=== PATIENT | male | born 1950 | race Caucasian/White ===

== ENCOUNTER 2017-01-07 17:36 | Inpatient (IN) | payer OTHER ==
[~2017-01-07] VITALS: Ht 180.3 cm; Wt 70.8 kg
--- NOTE | ~2017-01-07 | 2DMMODE ---
[facility] [address] [place] [address] 2 D/M-MODE ECHOCARDIOGRAM Name: WILEY CRUZ Room #: 312-P [facility] IN .#: [id number] Admission: 01/07/17 Attend Phys: Martinez Loza, Discharge: Date of : 48 Date of Service: 01/08/17 1248 Report #: [id number] THIS REPORT FOR: //name// APPROVED REPORT Study performed: 01/08/2017 11:21:44 EXAM: Comprehensive 2D, Doppler, and color-flow Echocardiogram Patient Location: In-Patient Room #: 312 Status: routine BSA: 1.92 BP: 97/51 mmHg Other Information Study Quality: Good Indications Dizziness and Vertigo Bradycardia 2D Dimensions RVDd: 40.57 mm LVEF(%): 71.18 (>50%) IVSd: 8.74 (7-11mm) LVOT Diam: 21.53 (18-24mm) LVDd: 39.05 mm PWd: 10.46 (7-11mm) LVDs: 23.46 (25-40mm) Aortic Root: 30.32 mm IVC: 2.20 mm Bowles's LVEF: 71.18 % Volumes Left Atrial Volume (Systole) Single Plane 4CH: 48.04 mL Single Plane 2CH: 58.50 mL LA ESV Index: 31.00 mL/m2 Aortic Valve AoV Peak Jordy.: 1.20 m/s AO Peak Gr.: 6.44 mmHg LVOT Max P.55 mmHg LVOT Max V: 0.94 m/s MARY Vmax: 2.86 cm2 Mitral Valve E/A Ratio: 2.1 MV Decel. Time: 270.69 ms [facility] [address] [place] [address] 2 D/M-MODE ECHOCARDIOGRAM Name: NANCYWILEY Deanna Room #: 312-P [facility] IN .R.#: [id number] Admission: 01/07/17 Attend Phys: Martinez Loza, Discharge: Date of : 48 Date of Service: 01/08/17 1248 Report #: [id number] MV E Max Jordy.: 1.00 m/s MV A Jordy.: 0.48 m/s MV PHT: 78.50 ms IVRT: 101.50 ms Pulmonary Valve PV Peak Jordy.: 1.15 m/s PV Peak Gr.: 5.25 mmHg Pulmonary Vein P Vein S: 0.43 m/s P Vein A: 0.33 m/s P Vein D: 0.44 m/s P Vein A Dur.: 106.1 msec P Vein S/D Ratio: 0.98 Tricuspid Valve TR Peak Jordy.: 2.76 m/s RAP Estimate: 10.00 mmHg TR Peak Gr.: 30.57 mmHg PA Pressure: 41.00 mmHg Left Ventricle The left ventricle is normal size. There is normal left ventricular wall thickness. The left ventricular systolic function is normal. The left ventricular ejection fraction is within the normal range. LVEF is 60-65%. The left ventricular diastolic function is normal. Right Ventricle The right ventricle is normal size. The right ventricular systolic function is normal. Atria The left atrium size is normal. Right atrium is at the upper limits of normal. Aortic Valve The aortic valve is normal in structure. No aortic regurgitation is present. There is no aortic valvular stenosis. Mitral Valve The mitral valve is normal in structure. Trace mitral regurgitation. No evidence of mitral valve stenosis. Tricuspid Valve The tricuspid valve is normal in structure. There is trace tricuspid regurgitation. The right atrial pressure is estimated at 10 mmHg. There is mild-moderate pulmonary hypertension with an estimated PAP of 41 mmHg. [facility] [place] [address] 2 D/M-MODE ECHOCARDIOGRAM Name: WILEY CRUZ Room #: 312-P [facility] IN .R.#: [id number] Admission: 01/07/17 Attend Phys: Martinez Loza, Discharge: Date of : 48 Date of Service: 01/08/17 1248 Report #: [id number] Pulmonic Valve The pulmonary valve is normal in structure. Trace pulmonic regurgitation. Great Vessels The aortic root is normal in size. IVC is dilated and collapses >50% with inspiration. Pericardium There is no pericardial effusion. <Conclusion> The left ventricle is normal size. LVEF is 60-65%. The right ventricle is normal size. The aortic valve is normal in structure. The mitral valve is normal in structure. Trace mitral regurgitation. The tricuspid valve is normal in structure. There is trace tricuspid regurgitation. The right atrial pressure is estimated at 10 mmHg. There is mild-moderate pulmonary hypertension with an estimated PAP of 41 mmHg. The pulmonary valve is normal in structure. Trace pulmonic regurgitation. <ELECTRONICALLY SIGNED> By: Andres Spain MD 01/08/17 1248 1248 1248 Andres Spain MD /INF
--- NOTE | ~2017-01-07 | EKG ---
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
--- NOTE | ~2017-01-07 | D ---
[facility] [place] [address] DISCHARGE SUMMARY Name: WILEY CRUZ Room #: 312-P [facility] IN M.R.#: [id number] Admission: 01/07/17 Attend Phys: Hiral Mclain MD Discharge: 01/10/17 Date of : 48 Report #: [id number] THIS REPORT FOR: //name// CC: BRADLEY physician/PCP Hiral Mclain DATE OF SERVICE: 01/10/2017 HISTORY OF PRESENT ILLNESS: The patient is a 66-year-old man who came to the hospital with dizziness. Please refer to the admission H and P for details. 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 HOSPITALIZATION COURSE: The patient was hospitalized. He was started on IV fluids. Because the patient was very dizzy, he had further evaluation. He had MRI of the brain, as well as CT scan. Both came negative. The patient was seen and evaluated by neurologist. No neurological abnormalities were detected. On admission, the patient was also found to have bradycardia. His heart rate was in mid 40s. Later during the hospitalization, the patient's heart rate has been in between 50 and 65 most of the time. The patient was seen and evaluated by manager terminal. Most likely, the patient has sinus bradycardia at baseline, due to him being athletic, and very active physically. Cardiology has recommended 2 weeks of the Holter monitoring, which will be scheduled as an outpatient. Cardiac echo was unremarkable, with normal ejection fraction. After IV fluids, the patient felt much better. Today, he is completely asymptomatic. He has no dizziness, no headaches, chest pain or other symptoms. His physical examination is also unremarkable, as documented in the patient's chart. DISCHARGE DIAGNOSES: 1. Dizziness, likely due to dehydration, resolved. Negative neurologic evaluation, including MRI of brain as detailed above. 2. Bradycardia, mild, likely physiologic. Sinus rhythm on EKG, unremarkable. Cardiac echo. For further evaluation, manager terminal recommended outpatient Holter, which will be scheduled. 3. Diet controlled diabetes mellitus type 2, with reported hemoglobin of 6.1%. DISCHARGE MEDICATIONS: None. FOLLOWUP PLAN: 1. Follow up with the primary care physician in 2-[address] [address] DISCHARGE SUMMARY Name: WILEY CRUZ Room #: 312-P [facility] IN M.R.#: [id number] Admission: 01/07/17 Attend Phys: Hiral Mclain MD Discharge: 01/10/17 Date of : 48 Report #: [id number] 2. Follow up with manager terminal and setup outpatient Holter monitoring as advised. <ELECTRONICALLY SIGNED> By: Hiral Mclain MD 01/10/17 1534 1230 1254 Hiral Mclain MD /nt
--- NOTE | ~2017-01-07 | EKG ---
[address] [address] ELECTROCARDIOGRAM REPORT Name: WILEY CRUZ Room #: 312-[facility] IN M.R.#: [id number] Admission: 01/07/17 Attend Phys: Hiral Mclain MD Discharge: 01/10/17 Date of : 48 Report #: [id number] THIS REPORT FOR: //name// 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
--- NOTE | ~2017-01-07 | H ---
[facility] [place] [address] HISTORY AND PHYSICAL Name: WILEY CRUZ Room #: 312-P ADM IN M.R.#: [id number] Admission: 01/07/17 Attend Phys: Martinez Loza DO Discharge: Date of : 48 Report #: [id number] THIS REPORT FOR: //name// CC: FAM physician/PCP Martinez Loza DATE OF SERVICE: 01/07/2017 ATTENDING PHYSICIAN: Martinez Loza DO. PRIMARY CARE PHYSICIAN: Anthony Hussein MD. CHIEF COMPLAINT: Dizziness. HISTORY OF PRESENT ILLNESS: The patient is a 66-year-old male who says this morning after waking up, he noticed that when he would walk, he was drifting to the right and he felt very off balance. This continued to occur intermittently throughout the day always when he was ambulating. He denied any vertigo-like dizziness or room spinning. He denies any near syncope. He said he just felt like he could not stay upright and had to hold on to things when he was walking. He has never had this type of feeling before. He has previously been admitted after a fainting spell in 2011 and was noted to have orthostatic hypotension at that time. He said his blood sugars were very elevated at that time and his symptoms eventually improved. He was never on any medication for it. He was supposed to do a Holter monitor at one point, but he never did. He denies any history of strokes. He denies any associated numbness, tingling or weakness in any extremities. He denies any recent illness, head or chest congestion or cough or fevers or chills. He denies any associated chest pain or palpitations. He denies any recent head injury. He tried taking some aspirin at home, but his symptoms stayed the same. Therefore, he came into the ER to be evaluated. He has never had any seizures. Since arrival, he has been resting comfortably. The patient did feel very nauseated earlier in the day when he was moving because of the dizziness. He also noted at home that he had a slight bilateral hand tremor. He did receive some fluids in the ER and since his hand tremoring has improved, he denies any further nausea. PAST MEDICAL HISTORY: Diabetes, which is currently diet controlled. He reports his recent hemoglobin A1c was 6.1. PAST SURGICAL HISTORY: Hernia repair. ALLERGIES: [place] [address] HISTORY AND PHYSICAL Name: WILEY CRUZ Room #: 312-P [facility] IN .R.#: [id number] Admission: 01/07/17 Attend Phys: Martinez Loza DO Discharge: Date of : 48 Report #: [id number] HOME MEDICATIONS: None known home medications. SOCIAL HISTORY: The patient denies any tobacco use. He has not had anything to drink since 2011. He was never a heavy drinker in the past, denies any drug use. He lives alone. He is a . He has no children. He is currently retired after working for [employer]. He does ride his bike and lifts weights regularly. FAMILY HISTORY: His mother of uterine cancer. His father of prostate cancer. Both his brother and sister are diabetics. REVIEW OF SYSTEMS: Twelve point review of systems was reviewed with the patient, otherwise negative unless stated in the HPI. PHYSICAL EXAMINATION: GENERAL: The patient is an alert male in no acute distress. VITAL SIGNS: Temperature is 36.8, heart rate 67, respirations 16, blood pressure is 131/85, oxygen 98% on room air. HEENT: PERRLA. No nystagmus. Oral mucosa is pink and moist. NECK: Supple, no JVD noted. No carotid bruit auscultated. CARDIOVASCULAR: Normal S1, S2. No murmurs, rubs or gallops. RESPIRATORY: Breath sounds are clear bilaterally. No wheezing or rhonchi. Breathing is nonlabored. ABDOMEN: Soft, nontender, nondistended with positive bowel sounds. VASCULAR: No edema noted. Pedal pulses are 2+. NEUROLOGIC: The patient is alert and oriented x 3. Speech is clear. No facial asymmetry. EOMs are intact bilaterally. Muscle strength is 5/5 in all 4 extremities. No tremoring noted. SKIN: Intact. No rashes or lesions. LABORATORY DATA AND DIAGNOSTICS: WBC is 4.5, hemoglobin 14.0 and platelets 172. Sodium 140, potassium 3.6, BUN 28, creatinine 0.9, glucose 147. CT of the head showed no acute intracranial process. ASSESSMENT AND PLAN: 1. Unsteady gait. The patient will be further evaluated for cerebellar stroke with an MRI and MRA of the brain in the morning. If there is indication for stroke, we will consult Neurology. We will also check carotid Dopplers and orthostatics and have PT evaluate. Continue aspirin daily. Continue meclizine p.r.n. for dizziness. 2. Diabetes. This is diet controlled. He reports recent hemoglobin A1c of 6.1. We will add sliding scale insulin and Accu-Cheks. 3. Bradycardia. Since the patient has been sleeping, his heart rate is running in the 40s, but he is asymptomatic with this. Continue to monitor on telemetry. He is not on any beta prashant therapy. 4. Deep venous thrombosis prophylaxis, place sequential compression devices. [address] [place] [address] HISTORY AND PHYSICAL Name: WILEY CRUZ Room #: 312-P ADM IN M.R.#: [id number] Admission: 01/07/17 Attend Phys: Martinez Loza DO Discharge: Date of : 48 Report #: [id number] 5. We will continue to follow the patient closely throughout the hospitalization and make changes based on clinical status. <ELECTRONICALLY SIGNED> By: TERESA Peace 01/09/17 0743 0756 0837 TERESA Peace /nt
[~2017-01-07 17:36] MED LIST: GLUCOPHAGE500 MG PO
[2017-01-07 17:38] VITALS: BP 131/85
[2017-01-07 18:43] LABS: BASOPHILS 0.6 % (0.0-2.0); EOSINOPHILS 2.5 % (0.0-3.0); HEMATOCRIT 40.7 % (42.0-52.0); LYMPHOCYTES 23.3 % (24.0-44.0); MANUAL DIFF NO; MCH 30.1 pg (26.0-34.0); MCHC 34.4 g/dL (28.0-37.0); MCV 87.4 fL (80.0-100.0); MONOCYTES 6.8 % (1.0-8.0); PLATELET COUNT 172 thou/uL (150-400); POLYS 66.8 % (36.0-66.0); RBC 4.66 mil/uL (4.50-6.00); WBC 4.5 thou/uL (4.0-11.0)
[2017-01-07 19:01] LABS: CALCIUM 8.9 mg/dL (8.5-10.1); CREATININE 0.9 mg/dL (0.7-1.3); POTASSIUM 3.6 mmol/L (3.5-5.1)
[2017-01-07 22:17] VITALS: BP 117/62
[2017-01-07 22:40] VITALS: BP 106/56
[2017-01-08] VITALS (11 sets, daily range): BP systolic 94–121; BP diastolic 37–66
[2017-01-08 05:37] LABS: CHOLESTEROL 162 mg/dL (<200); HDL CHOLESTEROL 48 mg/dL (>40); LDL CHOLESTEROL 105 mg/dL (<100); TC:HDL 3.4 Ratio (Not establshd); TRIGLYCERIDE 45 mg/dL (<150); VLDL 9 mg/dL (<40)
[2017-01-08 05:49] LABS: SERUM ASSESSMENT Clear
[2017-01-08 08:49] LABS: FOLIC ACID 18.8 ng/mL (8.6-58.9); TSH 1.286 uIU/mL (0.358-3.740)
[2017-01-09 03:41] VITALS: BP 101/82
[2017-01-09 08:27] VITALS: BP 105/63
[2017-01-09 15:34] VITALS: BP 93/53
[2017-01-09 20:00] VITALS: BP 105/55
[2017-01-10 04:00] VITALS: BP 103/58
[2017-01-10 08:07] VITALS: BP 102/60
[2017-01-10 14:09] VITALS: BP 102/60
== END 2017-01-10 14:23 | disposition home or self-care (01) | DRG 641 ==
LOC: ER 17:36 → 3N 21:55 → EROBS 21:55 → 3N 22:26
PROVIDERS: Emergency Medicine; Family Medicine; Nurse Practitioner Acute Care
DX: E86.0 Dehydration (principal); R00.1 Bradycardia, unspecified; E11.9 Type 2 diabetes mellitus without complications; E78.5 Hyperlipidemia, unspecified; Z60.2 Problems related to living alone; I95.9 Hypotension, unspecified; Z80.59 Family history of malignant neoplasm of other urinary tract organ; Z80.42 Family history of malignant neoplasm of prostate; Z83.3 Family history of diabetes mellitus; Z79.899 Other long term (current) drug therapy; Z79.82 Long term (current) use of aspirin
CPT/HCPCS: 10094

== ENCOUNTER 2019-11-28 02:08 | Inpatient (IN) | payer OTHER ==
[~2019-11-28] VITALS: Ht 180.3 cm; Wt 65.1 kg
[2019-11-28] VITALS (7 sets, daily range): BP systolic 103–122; BP diastolic 55–63
--- NOTE | ~2019-11-28 | HC ---
[facility] [place] [address] CONSULTATION Name: WILEY CRUZ Room #: 454-P [facility]..#: [id number] Admission: 11/28/19 Attend Phys: Alex Schuler MD Discharge: Date of : 48 Report #: [id number] THIS REPORT FOR: cc: Anthony Hussein MD, Eric K. MD Khosla, Parveen K. MD ~ CC: Alex Hussein DATE OF SERVICE: 11/29/2019 HISTORY OF PRESENT ILLNESS: This is a 69-year-old male patient who was evaluated by me for any neurological etiology for the patient's dizziness. The patient gives a history that he had this episode a few years ago and in fact he had the workup done here. His MRI was unremarkable. At this time, he was admitted with dizziness, but did not have any imaging study at the brain. He says his dizziness is pretty much resolved now. REVIEW OF SYSTEMS: Indicate that he had similar episode a few years ago. The symptom lasted just a few days and then he never had the symptoms again. He saw his family doctor who thought it was ENT problem, but he never saw an ENT physician. A 14-point review of systems is otherwise noncontributory. He has some mild nausea, which is becoming better. PAST MEDICAL HISTORY: Positive for similar episodes of dizziness. FAMILY HISTORY: Positive for cancer. SOCIAL HISTORY: He does not smoke or abuse alcohol. PHYSICAL EXAMINATION: Indicate that he is alert. He is responsive. He is able to follow simple and complex command. His cranial nerve examination 2-12 looks unremarkable. His strength, sensation, reflexes and tone is unremarkable. There is no cerebellar sign. There is no meningeal sign. There is no carotid bruit. Cardiac examination is unremarkable. Blood pressure is 112/68, respiration is 17, pulse is 50, temperature is 97.5. LABORATORY DATA: White count is low at 3.5. He did not have any imaging studies of the brain. IMPRESSION: I discussed with him that the most likely etiology for the patient's dizziness is ENT, but I recommended repeating the MRI just to make sure there is no pathology there. This is because whenever we missed the pathology which can be catastrophic. He understands that he feels it is ENT problem. He does not want to proceed with any further testing on the brain. He is competent to make his decision and I told him that he should let me know if [address] [address] CONSULTATION Name: WILEY CURZ Room #: 454-P [facility] Jan#: [id number] Admission: 11/28/19 Attend Phys: Alex Schuler MD Discharge: Date of : 48 Report #: [id number] he changes his mind. Thank you very much for this referral. By: 1856 0159 Darius Newman MD /nt
--- NOTE | ~2019-11-28 | EMS ---
[address] [address] EMS Patient Care Report Name: WILEY CRUZ Room #: 454-P ADM IN M.R.#: [id number] Admission: 11/28/19 Attend Phys: Alex Schuler MD Discharge: Date of : 48 Report #: [id number] THIS REPORT FOR: //name// Report Transmitted: 11/28/2019 06:47 EMS Care Summary [facility] MED-ACT Incident [id number] @ 11/28/2019 01:39 Incident Location [address] [place] [address] Patient WILEY CRUZ Male, 69 Years 1950 Patient Address [address] [place] [address] Patient History Diabetes, Patient Medications Metformin, Chief Complaint vertigo feels like "leaning to the right" Disposition Transported No Lights/[place] Reason Sick Person Transported To [facility] Narrative Pt says that he woke up this morning to go to the bathroom and he felt dizzy and like he was slightly leaning to the right. He says that this has happened before years ago. He was kept in the hospital for a few days for testing and then the symptoms resolved. He has not had any more episodes of this until this morning. Denies any recent sinus or ear problems. He denies any other complaints. Denies any recent illness or trauma. [address] [address] EMS Patient Care Report Name: WILEY CRUZ Room #: 454-P [facility] IN .R.#: [id number] Admission: 11/28/19 Attend Phys: Alex Schuler MD Discharge: Date of : 48 Report #: [id number] Alert and oriented. No facial droop noted. Uses all extremities purposefully. Speech is clear. No obvious weakness noted. Does not appear to be actually leaning any particular way. Secured to cot. Transported to [facility]. ER contacted levi. r/r no further orders. Released with report in ER. Initial Vitals @02:00P: 55,R: 16,SpO2: 98, @PTAP: 69,R: 20,BP: 143/67,SpO2: 100, @01:59P: 55,R: 20,BP: 106/70,Pain: 0/10,GCS: 15,Glucose: 147,SpO2: 97,Revised Trauma: 12, @02:04P: 64,R: 16,BP: 118/75,GCS: 15,SpO2: 98,Revised Trauma: 12, Assessments @02:00MENTAL:No Abnormalities,SKIN:No Abnormalities,HEENT:Head/Face: No Abnormalities,Eyes: No Abnormalities,Neck/Airway: No Abnormalities,LUNG SOUNDS:General: No Abnormalities,Left Upper: No Abnormalities,Right Upper: No Abnormalities,Left Lower: No Abnormalities,Right Lower: No Abnormalities,ABDOMEN:General: No Abnormalities,Left Upper: No Abnormalities,Right Upper: No Abnormalities,Left Lower: No Abnormalities,Right Lower: No Abnormalities,PELVIS//GI:No Abnormalities,EXTREMITIES:Left Arm: No Abnormalities,Right Arm: No Abnormalities,Left Leg: No Abnormalities,Right Leg: No Abnormalities,PULSE:Radial: 2+ Normal,NEURO:Other, Impression Dizziness Procedures @02:00ALS AssessmentResponse: UnchangedSucceeded 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,BP: 143/67 M,PULSE: 69,RR: 20 R,SPO2: 100 Ox,ETCO2: ,BG: ,PAIN: ,GCS: , 01:37,Call Received 01:37,Psap Call 01:39,Dispatched 01:41,En Route 01:45,On Scene 01:47,At Patient 01:56,Depart Scene 01:59,BP: 106/70 M,PULSE: 55,RR: 20 R,SPO2: 97 Ox,ETCO2: ,B,PAIN: 0,GCS: 15, 02:00,ALS Assessment,Response: UnchangedSucceeded, 02:00,BP: / M,PULSE: 55,RR: 16 R,SPO2: 98 Ox,ETCO2: ,BG: ,PAIN: ,GCS: , 02:04,BP: 118/75 M,PULSE: 64,RR: 16 R,SPO2: 98 Ox,ETCO2: ,BG: ,PAIN: ,GCS: 15, [facility] [address] [place] [address] EMS Patient Care Report Name: NANCYWILEY Huerta Room #: 454-P [facility] IN M.R.#: [id number] Admission: 11/28/19 Attend Phys: Alex Schuler MD Discharge: Date of : 48 Report #: [id number] 02:05,At Destination 02:24,Call Closed Disclaimer v1.1 Copyright 2020 [employer] This EMS Care Summary contains data elements from the applicable legal record (which may be displayed differently). It is designed to provide pertinent information for the following purposes: continuity of care, clinical quality, and state data reporting. The complete legal record is available to ED staff and administrators of the receiving hospital in [employer] Patient Tracker. All data is provided "as is."
[2019-11-28] MEDS ORDERED: METFORMIN HCL500 M3 PO ×2 (02:14)
[2019-11-28 03:04] LABS: ABSOLUTE NEUTROPHILS 1.9 thou/uL (1.4-8.2); BASOPHILS 0.3 % (0.0-2.0); EOSINOPHILS 3.1 % (0.0-3.0); HEMATOCRIT 40.5 % (42.0-52.0); HEMOGLOBIN 13.5 gm/dL (14.0-18.0); LYMPHOCYTES 23.4 % (24.0-44.0); MCH 30.5 pg (26.0-34.0); MCHC 33.3 g/dL (28.0-37.0); MCV 91.6 fL (80.0-100.0); MONOCYTES 9.7 % (1.0-8.0); PLATELET COUNT 161 thou/uL (150-400); POLYS 63.5 % (36.0-66.0); RBC 4.43 mil/uL (4.50-6.00); RDW 13.6 % (10.5-14.5)
[2019-11-28 03:05] LABS: ANION GAP 7 mmol/L (7-16); BUN 32 mg/dL (7-18); CALCIUM 9.1 mg/dL (8.5-10.1); CHLORIDE 101 mmol/L (98-107); CO2 30 mmol/L (21-32); GLUCOSE 150 mg/dL (74-106); POTASSIUM 3.7 mmol/L (3.5-5.1); SODIUM 138 mmol/L (136-145)
[2019-11-28 03:14] LABS: TROPONIN-I <0.06 ng/mL (<0.06)
--- NOTE | 2019-11-28 07:27 | NUR ---
ADMITTED FROM ER UNDER 'S CARE. ADMITTED [facility]. PT SEEN BY ARIANNE WALKER YARN MAN FOR AT BEDSIDE. FALL PRECAUTIONS IN PLACE. ADVISED TO CALL NURSING FOR ASSISTANCE WHEN NEEDED. CARE TRANSFERRED TO INCOMING RN AT THIS TIME.
--- NOTE | 2019-11-28 10:03 | EKG ---
[facility] [place] [address] ELECTROCARDIOGRAM REPORT Name: WILEY CRUZ Room #: 454-P ADM IN M.R.#: [id number] Admission: 11/28/19 Attend Phys: Alex Schuler MD Discharge: Date of : 48 Report #: [id number] THIS REPORT FOR: cc: Anthony Hussein MD, Eric K. MD Lundgren, Craig H. 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
--- NOTE | 2019-11-28 11:53 | NUR ---
Pt sleeping in bed when arriving for duty. Pt was awoken for vitals and blood sugar. 7am blood glucose 114. PT ate all of his breakfast, fluids encouraged. SCD machine applied , Iv running as ordered. Ortho static B/P taken with bed side assist ,laying down 101/52, p 57, sitting 113/ 57, p 70,and standing b/p 99/46, p 59. Alex said he felt a little dizzy when standing. No complaint of pain or burning with voiding. Dr Schuler attended pt, pt medication for vertigo to be started. Labs ordered for the Am.
--- NOTE | 2019-11-28 23:58 | NUR ---
ASSESSMENT: ASSUMED CARE OF PT AT 2300. PT CALLED OUT AT 2310 STATING THAT HE FELT SHAKY AND HOT. VSS, BLOOD SUGAR WAS 28, RECHECK WAS 36. ONE VIAL OF D5W WAS GIVEN. AFTER ABOUT 15 MINS BLOOD SUGAR WAS 152. Macie CARRINGTON WAS NOTIFIED OF SAID EVENT. INSULIN NOW DC'D AND ORDER FOR D5W IN VIAL ENTERED. BY 2350 PT STATE THAT HE FELT MUCH BETTER AND THAT HE WAS COLD. WILL CONTINUE TO MONITOR.
--- NOTE | 2019-11-29 00:26 | NUR ---
ASSUMED PT CARE AROUND 193. AXOX4. CALLS APPROPRIATELY FOR HELP. VSS. ALL MEDS EXPLAINED TO PT AND PT AGREED TO TAKE ALL MEDS. AROUND 2319, PT CALLED OUT AND SAID HE WAS HOT AND SHAKING. PT WAS AWAKE AND RESPONSIVE TO VERBAL STIMULI AND FOLLOWED ALL VERBAL COMMANDS. VITAL SIGNS WERE STABLE. HYPOGLYCEMIA WAS SUSPECTED. FSBS COMPLETED WITH RESULTS OF 28. IMMEDIATE RECHECK WAS 32. CARE WAS TRANSFFERED TO ANOTHER RN AT THE TIME AND TREATMENT,REPORTING AND FOLLOW UP COMPELETED BY ANOTHER RN. PT'S RECHECK AFTER PHAMACEUTICAL INTERVENTION WAS 152. PT REMAINED ALERT AND ORIENTED THRUOUT EPISODE OF HYPOGLYCEMIA.
[2019-11-29 01:06] LABS: GLYCOHEMOGLOBIN (HGB A1C) 6.8 % (4.8-5.6)
--- NOTE | 2019-11-29 04:37 | NUR ---
ASSESSMENT: PT'S BLOOD SUGAR IS NOW 112 AT 0430. PT IS ALERT AND ORIENT TIMES FOUR. STATE THAT HE FEELS A LITTLE BIT COLD BUT OTHERWISE HE FEELS SO MUCH BETTER THAN EARLIER. INSULIN WAS DC'D PT TAKES METFORMIN. PT SLEEPY, EASY TO AROUSE. VSS, AFEBRILE. MED SURG STATUS. WILL CONTINUE TO MONITOR.
[2019-11-29 06:18] LABS: HEMATOCRIT 39.5 % (42.0-52.0); HEMOGLOBIN 13.4 gm/dL (14.0-18.0); MCH 31.1 pg (26.0-34.0); MCHC 33.9 g/dL (28.0-37.0); MCV 91.7 fL (80.0-100.0); RBC 4.31 mil/uL (4.50-6.00); RDW 13.6 % (10.5-14.5); WBC 3.5 thou/uL (4.0-11.0)
[2019-11-29 06:29] LABS: CALCIUM 8.6 mg/dL (8.5-10.1); CREATININE 0.8 mg/dL (0.7-1.3); MAGNESIUM 1.8 mg/dL (1.8-2.4); POTASSIUM 4.2 mmol/L (3.5-5.1)
[2019-11-29 07:15] VITALS: BP 112/68
[2019-11-29] MEDS ORDERED: MECLIZINE HCL25 MG PO ×2 (08:40)
--- NOTE | 2019-11-29 10:58 | NUR ---
PT ADMITTED RELATED TO [facility]. CM REVIEWED CHART AND SPOKE WITH CARE TEAM. CM MET WITH PT AT BEDSIDE THIS DAY. PT IS A&O X4. CM ROLE INTRODUCED. PT INDICATED HE LIVES IN A HOUSE ALONE WITH 2 STEPS TO ENTER AND 10 STEPS INSIDE. 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 PT INDICATED HE HAD A CANE AND CRUTCHES IN A CLOSET AT HOME IF HE FEELS HE NEEDS THE. PT INDICATED NO HH HX. PT INDICATED HE PLANS TO RETURN HOME ONCE MEDICALLY STABLE. PT INDICATED HE HAS TRANSPORT HOME THIS DAY. THERE ARE ORDERES ENTERED FOR PT TO DC HOME THIS DAY TO SELF CARE. NO OTHER CM INTERVENTION INDICATED. CASE CLOSED.
--- NOTE | 2019-11-29 15:11 | NUR ---
Pt was in room in bed when I CAME on duty. Oral fluids encouraged, appitite is ggod. Pt had PT and ambulated in room and did some grooming and hygine, DR Stahl/Nina DISCHARGE AFTER PT REPORTED HE DID NOT FEEL MUCH DIFFERENCE SINCE HE CAME IN TO THE HOSPITAL. WILEY LIVES BY HIM SELF AND DOES NOT HAVE HELP. LUNGS SOUNDED CLEAR, PEDEAL PULSE STRONG , BOWEL SOUNDS ACTIVE. PT HAS NOT HAD A BM IN ABOUT 2 DAYS & BUT DENIES ANY CONSTIPATION. PHYSICAL THERAPY WILL RETURN IN AM TO WORK WITH WILEY, REGARDING MORE AMBULATION, WALKING UP STEPS AND INDURANCE WHEN TAKING A SHOWER. PT VOIDING USING URINAL,IV RUNING WELL.
--- NOTE | 2019-11-29 18:32 | NUR ---
pT HAS BEEN OOB IN ROOM FOR AN EXTENDED TIME TODAY. COMPRESSION LEG WEAR WAS REATTACHED. SUPPER BLOOD GLUCOSE, 127, ALL OF DINNER WAS EATEN. Joanne SAID "I FINALLY FEEL LIKE iM MAKING PROGRESS.
[2019-11-29 19:55] VITALS: BP 104/65
--- NOTE | 2019-11-30 05:48 | NUR ---
Assumed pt care at 1900. A/OX4,VSS. Denies pain on assessment,up with AX1/GB.Pt called at night reporting not feeling well when he woke up but couldn't tell exactly how he felt blood sugar rechecked and 154,only verbalized feeling weak. Denies any dizziness/lightheadedness on assessment. Continent voiding per urinal. Fall precautions in palce,calls approp. Will continue to monitor pt.
[2019-11-30 07:25] VITALS: BP 105/66
[2019-11-30 13:49] VITALS: BP 105/66
--- NOTE | 2019-11-30 14:48 | NUR ---
DC WAS HELD YESTERDAY PT DIDN'T FEEL WELL AND DIDN'T DO PARTICULARLY WELL WITH PT YESTERDAY. CARE TEAM INDICATED PT IS MEDICALLY STABLE FOR DC HOME THIS DAY. PT TO DC HOME THIS DAY TO SELF CARE. NO OTHER CM INTERVENTION INDICATED. CASE CLOSED.
--- NOTE | 2019-11-30 15:04 | NUR ---
PIV DISCONTINUED. DISCHARGE INSTRUCTIONS REVIEWED WITH PT. PRESCRIPTION WAS SENT TO [facility]. PT OWN METFORMIN PICKED UP FROM OUR PHARMACY. DISCHARGE INSTRUCTIONS, EDUCATION MATERIALS AND ALL BELONGINGS SENT WITH PT.
== END 2019-11-30 15:09 | disposition home health service (06) | DRG 149 ==
LOC: ER 02:08 → 4W 04:49 → EROBS 04:49 → 4W 04:59
PROVIDERS: Emergency Medicine; Nurse Practitioner Family; ADMIT Hospitalist; ATTEND Hospitalist
DX: H81.399 Other peripheral vertigo, unspecified ear (principal); R11.0 Nausea; E11.649 Type 2 diabetes mellitus with hypoglycemia without coma; E86.0 Dehydration; G47.00 Insomnia, unspecified; N40.0 Benign prostatic hyperplasia without lower urinary tract symptoms; F32.9 Major depressive disorder, single episode, unspecified; I10 Essential (primary) hypertension; Z90.89 Acquired absence of other organs; Z79.84 Long term (current) use of oral hypoglycemic drugs; Z80.42 Family history of malignant neoplasm of prostate; Z79.899 Other long term (current) drug therapy
CPT/HCPCS: 10040; 10045

== ENCOUNTER 2019-11-30 20:43 | Emergency (ER) | payer OTHER ==
[~2019-11-30] VITALS: Ht 180.3 cm; Wt 63.5 kg
[~2019-11-30 20:43] MED LIST changes: +MECLIZINE HCL25 MG PO; +METFORMIN HCL500 M3 PO
[2019-11-30 21:47] LABS: ABSOLUTE NEUTROPHILS 2.2 thou/uL (1.4-8.2); BASOPHILS 0.7 % (0.0-2.0); EOSINOPHILS 2.7 % (0.0-3.0); HEMATOCRIT 39.2 % (42.0-52.0); HEMOGLOBIN 13.2 gm/dL (14.0-18.0); LYMPHOCYTES 29.3 % (24.0-44.0); MCH 30.7 pg (26.0-34.0); MCHC 33.6 g/dL (28.0-37.0); MCV 91.4 fL (80.0-100.0); MONOCYTES 10.6 % (1.0-8.0); PLATELET COUNT 176 thou/uL (150-400); POLYS 56.7 % (36.0-66.0); RDW 13.4 % (10.5-14.5); WBC 3.8 thou/uL (4.0-11.0)
[2019-11-30 21:54] LABS: ANION GAP 2 mmol/L (7-16); BUN 20 mg/dL (7-18); CALCIUM 8.9 mg/dL (8.5-10.1); CHLORIDE 102 mmol/L (98-107); CO2 34 mmol/L (21-32); CREATININE 0.9 mg/dL (0.7-1.3); GLUCOSE 129 mg/dL (74-106); POTASSIUM 3.9 mmol/L (3.5-5.1); SODIUM 138 mmol/L (136-145)
[2019-11-30 22:04] LABS: ALBUMIN 3.3 g/dL (3.4-5.0); SGOT 21 U/L (15-37); SGPT 27 U/L (30-65); TOTAL BILIRUBIN 0.5 mg/dL (0.2-1.0); TOTAL PROTEIN 6.7 g/dL (6.4-8.2); TROPONIN-I <0.06 ng/mL (<0.06)
[2019-12-01 00:13] VITALS: BP 109/64
--- NOTE | 2019-12-01 08:12 | EKG ---
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: FRANCHESCA PATTON : 1950 Requested By: Valeria June Order Number: [id number] MD: Akil Bullard Measurements Intervals [place] Rate: 56 P: 69 SC: 188 QRS: 12 QRSD: 93 T: 57 QT: 397 QTc: 384 Interpretive Statements Sinus bradycardia Otherwise no significant abnormality Compared to ECG 11/28/2019 02:19:36 Septal Q waves are no longer present Electronically Signed On 12-01-2019 8:11:46 CDT by Akil Bullard [email or web address] <ELECTRONICALLY SIGNED> By: Akil Bullard MD, [facility] 12/01/19 0811 [id number] 55 Akil Bullard MD, [facility] /EPI
== END 2019-12-01 00:14 | disposition home or self-care (01) ==
LOC: ER 20:43
PROVIDERS: Student in an Organized Health Care Education/Training Program
DX: R42 Dizziness and giddiness (principal); E11.9 Type 2 diabetes mellitus without complications; Z79.84 Long term (current) use of oral hypoglycemic drugs